=== PATIENT | female | born 1975 | race African-American/Black ===

== ENCOUNTER 2018-05-28 16:38 | Emergency (ER) | payer SELFPAY ==
[~2018-05-28] VITALS: Ht 172.7 cm; Wt 115.2 kg
[2018-05-28 16:40] VITALS: Ht 172.7 cm; Wt 115.2 kg
[2018-05-28 18:53] VITALS: BP 151/93
== END 2018-05-28 18:53 | disposition home or self-care (01) ==
LOC: ED 16:38
DX: J20.9 Acute bronchitis, unspecified (principal); J06.9 Acute upper respiratory infection, unspecified; I10 Essential (primary) hypertension; E11.9 Type 2 diabetes mellitus without complications; E78.00 Pure hypercholesterolemia, unspecified